=== PATIENT | female | born 1990 | race Caucasian/White ===

== ENCOUNTER 2025-09-27 20:24 | Emergency (ER) | payer BC, SELFPAY ==
--- OUTSIDE RECORDS SUMMARY | 2025-09-21 13:00 | XMS_ITS | Encounter Summary ---
Author Organization [facility] Address [address] [facility] [place] [address] Care Team Providers Care Infrastructure Technician Name Role Phone Yeimi Alexander MD Primary Care Provider [phone] Yeimi Alexander MD Unavailable Reason for Visit * ReasonCommentsUTIAnnual ExamAbdominal PainAbdominal Cramping Encounter Details DateTypeDepartmentCare Team (Latest Contact Info)Robqfuilfwi94/02/2025 1:00 PM ESTOffice Visit [facility] [address] [place] [address] Yeimi Alexander MD [address] [place], [place] [phone] Malignant neoplasm of colon, unspecified part of colon (HCC) (Primary Dx); Right lower quadrant abdominal pain; Acute cystitis with hematuria; Irregular bowel habits Social History Tobacco UseTypesPacks/DayYears UsedDateSmoking Tobacco: Every DayCigarettes Smokeless Tobacco: Never Comments:Vapes daily Alcohol UseStandard Drinks/WeekCommentsYes1 (1 standard drink = 0.6 oz pure alcohol)caffeine intake: 2-3 cups per day; [id number] Health LiteracyAnswer Date RecordedHow often do you need to have someone help you when you read instructions, pamphlets, or other written material from your doctor or pharmacy? Never08/03/2024Social Connection and Isolation PanelAnswerDate RecordedIn a typical week, how many times do you talk on the phone with family, friends, or neighbors?More than three times a week08/03/2024How often do you get together with friends or relatives?More than three times a week08/03/2024How often do you attend restorationism or adventism services?Never08/03/2024o you belong to any clubs or organizations such as restorationism groups, unions, fraternal or athletic groups, or school groups?No08/03/2024How often do you attend meetings of the clubs or organizations you belong to?Never08/03/2024re you , , , , never , or living with a partner?Czowluax05/14/2024UDIT-C AnswerDate RecordedQ1: How often do you have a drink containing alcohol?2-3 times a week08/03/2024Q2: How many drinks containing alcohol do you have on a typical day when you are drinking?1 or Q3: How often do you have six or more drinks on one occasion?Njryrck5508/03/2024Overall Financial Resource Strain (CARDIA)AnswerDate RecordedHow hard is it for you to pay for the very basics like food, housing, medical care, and heating?Not very hard08/03/2024 PHQ-2AnswerDate RecordedPatient Health Questionnaire-2 Dndce92511/25/2022[facility] - Occupational Stress QuestionnaireAnswerDate RecordedDo you feel stress - tense, restless, nervous, or anxious, or unable to sleep at night because yourmind is troubled all the time - these days?Only a bfprts2608/03/2024Exercise Vital SignAnswerDate RecordedOn average, how many days per week do you engage in moderate to strenuous exercise (like a brisk walk)?2 days08/03/2024On average, how many minutes do you engage in exercise at this level?60 min08/03/2024Hunger Vital SignAnswerDate RecordedWithin the past 12 months, you worried that your food would run out before you got the money to buy more.Never true08/03/2024Within the past 12 months, the food you bought just didn't last and you didn't have money to get more.Never true08/03/2024RAPARE - TransportationAnswerDate RecordedIn the past 12 months, has lack of transportation kept you from medical appointments or from getting medications?No 08/03/2024In the past 12 months, has lack of transportation kept you from meetings, work, or from getting things needed for daily living?No08/03/2024 Housing Stability Vital SignAnswerDate RecordedIn the last 12 months, was there a time when you were not able to pay the mortgage or rent on time?No08/03/2024In the past 12 months, how many times have you moved where you were living?0 08/03/2024t any time in the past 12 months, were you homeless or living in a penitentiary (including now)?No08/03/2024CommentsUnknownSex and Gender InformationValueDate RecordedSex Assigned at BirthNot on fileLegal SexFemale 01/02/2023 8:01 PM EDTGender IdentityNot on fileSexual OrientationNot on file OccupationIndustryJob Start DateJob End DateunemployedNot on fileNot on fileNot on filedocumented as of this encounter Last Filed Vital Signs Vital SignReadingTime TakenCommentsBlood Btlektwa335/7409/21/2025 12:59 PM EST Voutx469009/21/2025 12:59 PM ESTTemperature--Respiratory Ishm706311/22/2024 12:59 PM ESTOxygen Saturation--Inhaled Oxygen Concentration--Mxhftq91.2 kg (174 lb 9.6 oz)09/21/2025 12:59 PM CZJYydnhg888.5 cm (5' 2 )09/21/2025 12:59 PM ESTBody Mass Index31.9309/21/2025 12:59 PM ESTdocumented in this encounter Progress Notes * Yeimi Alexander MD - 09/21/2025 1:00 PM ESTAssociated Problem(s): Malignant neoplasm of colon (HCC) s/p colectomy last colonoscopy 10/2023 pt report scopes every 3 years? * Yeimi Alexander MD - 09/21/2025 1:00 PM ESTAssociated Problem(s): Urinary tract infectious disease Orders: sulfamethoxazole-trimethoprim (Bactrim DS) 800-160 MG per tablet; Take 1 tablet by mouth in the morning and 1 tablet before bedtime. Do all this for 7 days. * Yeimi Alexander MD - 09/21/2025 1:00 PM EST Images from the original note were not included. Subjective ?Quick Links Last Note in Specialty Snapshot Edit RFV/CC Edit Screenings Current Meds Patient ID: Oanh Wynn is a 35 y.o. female who presents for UTI, Annual Exam, Abdominal Pain, and Abdominal Cramping. HPI History of Present Illness The patient presents for evaluation of a urinary tract infection. She has been experiencing sleep disturbances over the past few days, which she suspects may be related to her current health issues. Accompanying these sleep issues are nausea and a sensation of urgency. She typically seeks medical attention before these symptoms escalate. She reports that Bactrim has been effective in managing her symptoms in the past. She describes an incident at work where shefelt well initially but experienced pain after her first break, which intensified to the point of causing discomfort during walking and standing. Despite maintaining good hygiene, she reports recurrent infections, approximately one every other month. Her last infection occurred in 07/2025. She declined a referral to a urologist. She managed the pain with Tylenol and the application of a heating pad. She reports feeling well overall and has not had any recent consultations with her vacuum repairer. She has been experiencing bowel irregularities recently, including a sensation of incomplete evacuation. She describes an unusual sensation in the area of her stoma, likening it to the feeling of gas passing through or even a baby kicking. She finds relief from this discomfort by massaging the area and applying a heating pad. Sleep: Reports sleep disturbances over the past few days PAST SURGICAL HISTORY: - Colonoscopy in 10/2023 ?Quick Review Review Full History Edit History Meds - Current Medications[1] --- PMH - Anxiety Cluster headache Colon cancer (HCC) Depression Endometriosis Gestational diabetes ([facility]HS-HCC) Headache Hx of being hospitalized Migraine Personal history of other medical treatment PTSD (post-traumatic stress disorder) TMJ dysfunction Two vessel umbilical cord ([facility]) Urinary retention Objective ?Quick Links Add Vitals Timeline (Adult) Labs Imaging Results Review Trend Vitals ?? Avoid pulling in long tables of results. Comment on relevant results to support your medical decision making. BP 114/74 (BP Location: Left arm, Patient Position: Sitting, BP Cuff Size: Adult) Pulse 88 Resp18 Ht 5' 2 Wt 174 lb 9.6 oz BMI 31.93 kg/m?? Physical Exam Physical Exam Gastrointestinal: Palpable scar tissue noted near the stoma site. ?Quick Links Full Problem List GI Headache Assessment & Plan Right lower quadrant abdominal pain Orders: POCT Urinalysis dipstick Urine culture (clean catch); Future Urinalysis with reflex microscopic (clean catch); Future POCT , urine Malignant neoplasm of colon, unspecified part of colon ([facility]) s/p colectomy last colonoscopy 10/2023 pt report scopes every 3 years? Acute cystitis with hematuria Orders: sulfamethoxazole-trimethoprim (Bactrim DS) 800-160 MG per tablet; Take 1 tablet by mouth in the morning and 1 tablet before bedtime. Do all this for 7 days. Irregular bowel habits Advised to schedule w [facility] / dr callaway Assessment & Plan 1. Urinary tract infection: - Urine study confirms the presence of a urinary tract infection. She reports frequent infections, with the last one occurring in 07/2025. - Reports nausea and pain associated with the infection, which worsened throughout the day. - Advised to maintain adequate hydration and monitor symptoms. If symptoms persist, further evaluation will be necessary. - Prescription for Bactrim will be provided. 2. Bowel irregularities: - Reports issues with bowel movements and sensations near her stoma site, including pain and gas movement. - Advised to schedule an appointment with her vacuum repairer for further assessment. [1] acetaminophen (Tylenol) 325 MG tablet albuterol HFA 90 mcg/act inhaler cetirizine (ZyrTEC ALLERGY) 10 MG tablet cholecalciferol (Vitamin D-3) 50 MCG (1999 UT) capsule citalopram (CeleXA) 20 MG tablet Cranberry 500 MG tablet dicyclomine (Bentyl) 20 MG tablet fluticasone (Flonase) 50 MCG/ACT nasal spray ibuprofen 200 MG tablet Lactobacillus-Inulin (CULTURELLE ADULT ULT BALANCE PO) medroxyPROGESTERone (Depo-Provera) 150 MG/ML suspension prefilled syringe injection syringe Multiple Vitamin (multivitamin) capsule polyethylene glycol, PEG, 3350 (Glycolax) 17 GM/SCOOP powder documented in this encounter Plan of Treatment Not on file documented as of this encounter Procedures Procedure NamePriorityDate/TimeAssociated QjhqipaxzSwaaydejWKDJHrtfojz29/02/2025 1:14 PM EST URINALYSIS QWCOCDFzebjra27/02/2025 1:14 PM EST Right lower quadrant abdominal pain CULTURE, URINE, DCOCHDYBvonwra18/02/2025 1:14 PM EST Right lower quadrant abdominal pain POCT , TBQNELynxlwg47/02/2025 1:12 PM EST Right lower quadrant abdominal pain POCT URINALYSIS UXYUZEINKjthmzh28/02/2025 1:11 PM EST Right lower quadrant abdominal pain documented in this encounter Results * NOTE (09/21/2025 1:14 PM EST)ComponentValueRef RangeTest MethodAnalysis Time Performed AtPathologist SignatureNOTEQUESTComment: This urine was analyzed for the presence of WBC, RBC, bacteria, casts, and other formed elements. Only those elements seen were reported. Specimen (Source)Anatomical Location / LateralityCollection Method / Volume Collection TimeReceived Time09/21/2025 1:14 PM EST09/21/2025 1:15 PM EST Narrative Resulting Agency Comment Performing Organization Information ?Site ID: QPT ?Name: [facility] ?Address: [address] [place] [address], [address] [place] [phone] ?Director: Cody Richmond MD Authorizing ProviderResult TypeResult StatusYeimi Alexander MDQUESTFinal Result Performing OrganizationAddressCity/State/ZIP CodePhone Number [facility] * (ABNORMAL) Urinalysis with reflex microscopic (clean catch) (09/21/2025 1:14 PM EST)ComponentValueRef RangeTest MethodAnalysis TimePerformed AtPathologist SignatureCOLORYELLOWYELLOWQUESTAPPEARANCECLOUDY(A)CLEARQUESTSPECIFIC GRAVITY 1.0081.001 - 1.355NGCTXWG9.55.0 - 8.0QUESTGLUCOSENEGATIVENEGATIVEQUEST BILIRUBINNEGATIVENEGATIVEQUESTKETONESNEGATIVENEGATIVEQUESTOCCULT BLOOD2+(A) NEGATIVEQUESTPROTEINTRACE(A)NEGATIVEQUESTNITRITENEGATIVENEGATIVEQUESTLEUKOCYTE ESTERASE3+(A)NEGATIVEQUESTWBC> OR = 60(A)< OR = 5 /HPFQUESTRBCNONE SEEN< OR = 2 /HPFQUESTSQUAMOUS EPITHELIAL CELLS0-5< OR = 5 /HPFQUESTBACTERIAFEW(A)NONE SEEN /HPFQUESTHYALINE CAST0-5(A)NONE SEEN /LPFQUESTSpecimen (Source)Anatomical Location / LateralityCollection Method / VolumeCollection TimeReceived Time UrineUrine specimen obtained by clean catch procedure / Ftjjyva4309/21/2025 1:14 PM EST09/21/2025 1:15 PM EST Narrative Resulting Agency Comment Performing Organization Information ?Site ID: QPT ?Name: [facility] ?Address: [address] [place] [phone] ?Director: Cody Richmond MD Authorizing ProviderResult TypeResult StatusYeimi Alexander MDLAB URINE ORDERABLES Final ResultPerforming OrganizationAddressCity/State/ZIP CodePhone Number [facility] * Urine culture (clean catch) (09/21/2025 1:14 PM EST)ComponentValueRef Range Test MethodAnalysis TimePerformed AtPathologist SignatureMICRO [id number] QUESTSPECIMEN QUALITYAdequateQUESTSOURCE: (QUEST)URINEQUESTSTATUSFINALQUEST RESULTSEE NOTEQUESTComment: Less than 10,000 CFU/mL of single Gram negative organism isolated. No further testing will be performed. If clinically indicated, recollection using a method to minimize contamination, with prompt transfer to Urine Culture Transport Tube, is recommended. Specimen (Source)Anatomical Location / LateralityCollection Method / Volume Collection TimeReceived TimeUrineUrine specimen obtained by clean catch procedure / Vultgdf7809/21/2025 1:14 PM EST09/21/2025 1:15 PM EST Narrative Resulting Agency Comment Performing Organization Information ?Site ID: QPT ?Name: [facility] ?Address: [address] [place] [address], [address] [place] [id number] ?Director: Cody Richmond MD Authorizing ProviderResult TypeResult Corby Alexander MDLAB MICROBIOLOGY - GENERAL ORDERABLESFinal ResultPerforming OrganizationAddressCity/State/ZIP Code Phone Number [facility] * POCT , urine (09/21/2025 1:12 PM EST)ComponentValueRef RangeTest MethodAnalysis TimePerformed AtPathologist SignaturePreg Test, UrNegative NegativeSpecimen (Source)Anatomical Location / LateralityCollection Method / VolumeCollection TimeReceived LuktYtrze35/02/2025 1:12 PM EST Narrative Authorizing ProviderResult TypeResult Corby Alexander MDPOINT OF CARE TEST ENTER/EDIT ORDERABLESFinal Result * (ABNORMAL) POCT Urinalysis dipstick (09/21/2025 1:11 PM EST)ComponentValueRef RangeTest MethodAnalysis TimePerformed AtPathologist SignatureColor, UAYellow Clarity, UACloudyGlucose, UANegativeNegative - 2000(110) ++++ mg/dLBilirubin, UANegativeNegative - 4(70) +++ mg/dLKetones, UAPositiveNegative - 160(16) ++++ mg/dLSpec Grav, UA1.0151 - 1.03Blood, UAPositiveNegative - 50 Sahil/mcLpH, UA 6.55 - 9Protein, UA1+Negative - 2000(20) ++++ mg/dLUrobilinogen, UA0.20.2 - 12 mg/dLLeukocytes, UA3+Negative - 500+++ Brayan/mcLNitrite, UANegativeNegative - PositiveSpecimen (Source)Anatomical Location / LateralityCollection Method / VolumeCollection TimeReceived MjeiHlakh75/02/2025 1:11 PM EST Narrative Authorizing ProviderResult TypeResult Corby Alexander MDPOINT OF CARE TEST ENTER/EDIT ORDERABLESFinal Result documented in this encounter Visit Diagnoses Diagnosis Malignant neoplasm of colon, unspecified part of colon (HCC)- Primary Right lower quadrant abdominal pain Acute cystitis with hematuria Irregular bowel habits documented in this encounter Care Teams Team MemberRelationshipSpecialtyStart DateEnd Date Yeimi Alexander MD [address] [facility] [place] [address] [facility] - [facility] Yeimi Alexander MD [address] [facility] [address] [place], [place] [id number] PCP - Alan Lara06/21/25documented as of this encounter
--- OUTSIDE RECORDS SUMMARY | 2025-09-27 19:00 | XMS_ITS | Encounter Summary ---
Author Organization [facility] Address [address] [place] [address] Care Team Providers Care Quality Analyst Name Role Phone Yeimi Alexander MD Primary Care Provider [phone] Yeimi Alexander MD Unavailable Reason for Referral * Imaging (Routine) - Pending ReviewSpecialtyDiagnoses / ProceduresReferred By ContactReferred To ContactRadiology Diagnoses Fever, unspecified fever cause Hx of pyelonephritis Acute bilateral low back pain without sciatica Procedures CT abdomen pelvis w and wo IV contrast Silvia Silva NP [address] [place] [address] Phone: tel: fax: Referral IDStatusReasonStart DateExpiration DateVisits RequestedVisits [id number] [id number]/ Reason for Visit * ReasonCommentsFeverBack Pain Encounter Details DateTypeDepartmentCare Team (Latest Contact Info)Hyumgmecbid92/08/2025 7:00 PM ESTOffice Visit [facility] [address] [place] [phone] Silvia Silva NP [address] [place], [place] [phone] Hx of pyelonephritis (Primary Dx); Fever, unspecified fever cause; Acute midline low back pain without sciatica; Acute bilateral low back pain without sciatica Social History Tobacco UseTypesPacks/DayYears UsedDateSmoking Tobacco: Every DayCigarettes Smokeless Tobacco: Never Comments:Vapes daily Alcohol UseStandard Drinks/WeekCommentsYes1 (1 standard drink = 0.6 oz pure alcohol)caffeine intake: 2-3 cups per day; [id number] Health LiteracyAnswer Date RecordedHow often do you [...] times a week08/03/2024How often do you attend mu-ism or tenriism services?Never08/03/2024o you belong to any clubs or organizations such as mu-ism groups, unions, fraternal or athletic groups, or school groups?No08/03/2024How often do you attend meetings of the clubs or organizations you belong to?Never08/03/2024re you , , , , never , or living with a partner?Kwbtyiyo96/14/2024UDIT-C AnswerDate RecordedQ1: How often do you have a drink containing alcohol?2-3 times a week08/03/2024Q2: How many drinks containing alcohol do you have on a typical day when you are drinking?1 or Q3: How often do you have six or more drinks on one occasion?Kdjzpbk2908/03/2024Overall Financial Resource Strain (CARDIA)AnswerDate RecordedHow hard is it for you to pay for the very basics like food, housing, medical care, and heating?Not very hard08/03/2024 PHQ-2AnswerDate RecordedPatient Health Questionnaire-2 [facility]tcef107[facility] [place] [facility] - Occupational Stress QuestionnaireAnswerDate RecordedDo you feel stress - tense, restless, nervous, or anxious, or unable to sleep at night because yourmind is troubled all the time - these days?Only a pqivsl6508/03/2024Exercise Vital SignAnswerDate RecordedOn average, how many days [...] were you homeless or living in a fci (including now)?No08/03/2024CommentsUnknownSex and Gender InformationValueDate RecordedSex Assigned at BirthNot on fileLegal SexFemale 01/02/2023 8:01 PM EDTGender IdentityNot on fileSexual OrientationNot on file OccupationIndustryJob Start DateJob End DateunemployedNot on fileNot on fileNot on filedocumented as of this encounter Last Filed Vital Signs Vital SignReadingTime TakenCommentsBlood Ayimvtpf238/7209/27/2025 6:01 PM EST Oryky544409/27/2025 6:01 PM QLDMsghzsrucet78.7 ??C (99.9 ??F)09/27/2025 6:01 PM ESTRespiratory Pnzh0803/05/2025 6:01 PM ESTOxygen Saturation--Inhaled Oxygen Concentration--Knfsme70.2 kg (174 lb 9.6 oz)09/27/2025 6:01 PM JFCIorzcg912.5 cm (5' 2 )09/27/2025 6:01 PM ESTBody Mass Index31.9309/27/2025 6:01 PM EST documented in this encounter Progress Notes * Silvia Silva NP - 09/27/2025 7:00 PM ESTAssociated Problem(s): Fever Orders: POCT Urinalysis dipstick STATUS COVID-19/FLU CBC and differential; Future Comprehensive metabolic panel; Future Mononucleosis screen; Future ciprofloxacin (Cipro) 500 MG tablet; Take 1 tablet (500 mg) by mouth in the morning and 1 tablet (500 mg) before bedtime. Do all this for [address] abdomen pelvis w and wo IV contrast; Future Sedimentation rate, automated; Future * Silvia Silva NP - 09/27/2025 7:00 PM EST Images from the original note were not included. Subjective ?Quick Links Last Note in Specialty Snapshot Edit RFV/CC Edit Screenings Current Meds Patient ID: Oanh Wynn is a 35 y.o. female who presents for Fever and Back Pain. HPI History of Present Illness The patient presents for evaluation of neck pain, and back pain. She reports experiencing recently having symptoms consistent with a UTI, including dysuria, which has since resolved. She started having a fever yesterday and she has been managing her symptoms with Tylenol and Motrin, administered every 4 hours. She is currently on Bactrim for her UTI. This morning, she developed neck stiffness and lower back pain, reminiscent of a previous kidney infection. She also reports intermittent fever, chills, and fatigue. She is unable to flex her neck due to pain. She has no other symptoms apart from the aforementioned back and neck pain and fever. ALLERGIES The patient has no known allergies. 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 Avoid pulling in long tables of results. Comment on relevant results to support your medical decision making. BP 116/72 (BP Location: Left arm, Patient Position: Sitting, BP Cuff Size: Adult) Pulse 86 Temp99.9 ??F (Tympanic) Resp 18 Ht 5' 2 Wt 174 lb 9.6 oz BMI 31.93 kg/m?? Physical Exam Vitals reviewed. Constitutional: General: She is not in acute distress. Appearance: Normal appearance. She is ill-appearing. HENT: Head: Normocephalic and atraumatic. Right Ear: Tympanic membrane normal. Left Ear: Tympanic membrane normal. Nose: Nose normal. Eyes: General: No visual field deficit. Neck: Meningeal: Brudzinski's sign absent. Comments: Neck isn't rigid, is painful with movement. Cardiovascular: Rate and Rhythm: Normal rate and regular rhythm. Pulses: Normal pulses. Heart sounds: Normal heart sounds. Pulmonary: Effort: Pulmonary effort is normal. Breath sounds: Normal breath sounds. No wheezing, rhonchi or rales. Abdominal: General: Abdomen is flat. Palpations: Abdomen is soft. Tenderness: There is right CVA tenderness and left CVA tenderness. Musculoskeletal: General: Normal range of motion. Cervical back: Normal range of motion. Pain with movement and muscular tenderness present. Lymphadenopathy: Head: Right side of head: Submandibular adenopathy present. Left side of head: Submandibular adenopathy present. Cervical: Cervical adenopathy present. Skin: General: Skin is warm. Neurological: General: No focal deficit present. Mental Status: She is alert and oriented to person, place, and time. Sensory: Sensation is intact. No sensory deficit. Motor: Motor function is intact. Coordination: Coordination is intact. Gait: Gait is intact. Psychiatric: Mood and Affect: Mood normal. Behavior: Behavior normal. Physical Exam Vital Signs: Temperature is 99.9??F. HEENT: Neck is stiff with pain on movement. No sore throat. Solidly enlarged lymph nodes noted. Respiratory: Lungs clear to auscultation. ?Quick Links Full Problem List GI Headache Assessment & Plan Fever, unspecified fever cause Orders: POCT Urinalysis dipstick STATUS COVID-19/FLU CBC and differential; Future Comprehensive metabolic panel; Future Mononucleosis screen; Future ciprofloxacin (Cipro) 500 MG tablet; Take 1 tablet (500 mg) by mouth in the morning and 1 tablet (500 mg) before bedtime. Do all this for [address] abdomen pelvis w and wo IV contrast; Future Sedimentation rate, automated; Future Acute midline low back pain without sciatica Orders: POCT Urinalysis dipstick Assessment & Plan 1. Urinary tract infection (UTI). Her urine sample did not reveal significant abnormalities, except for the presence of white blood cells, which could be indicative of various conditions. Her culture did not grow any bacteria from 09/21/25. A prescription for Cipro will be provided as an alternative to Bactrim to cover a kidney infection. 2. Back pain She reports bilateral lower back pain, and demonstrated bilateral CVA tenderness on palpation. She has a history of pyelonephritis. The CT scan of the abdomen and pelvis will help determine if there is any underlying infection causing her symptoms. 3. Fever She has a low grade temp of 99.9 today and reports that she has been having body aches and chills. Her flu and covid tests are negative. A CBC, CMP, Sed rate, and a screening for mononucleosis will also be ordered. 3. Neck pain. She reports neck pain and stiffness, and reports pain with bending her head to her chest. The Brudzinski's sign was negative. She was concerned for the possibility of meningitis and this was discussed, given her symptoms of neck pain and fever. Blood work, including a CBC and CMP, will be conducted. If her condition deteriorates, particularly if she experiences worsening neck pain, fever, headache, changes in mentation, dizziness, photophobia, lightheadedness, vomiting, confusion, or the development of rashes, she should seek immediate medical attention at the emergency room- she is agreeable. She will follow-up in 1 week or earlier if needed. [1] acetaminophen (Tylenol) 325 MG tablet albuterol [...] glycol, PEG, 3350 (Glycolax) 17 GM/SCOOP powder sulfamethoxazole-trimethoprim (Bactrim DS) 800-160 MG per tablet documented in this encounter Plan of Treatment NameTypePriorityAssociated DiagnosesOrder ScheduleCBC and differentialLabRoutine Fever, unspecified fever cause Acute bilateral low back pain without sciatica Expected: 09/27/2025 (Approximate), Expires: 09/27/2026omprehensive metabolic panelLabRoutine Fever, unspecified fever cause Acute bilateral low back pain without sciatica Expected: 09/27/2025 (Approximate), Expires: 09/27/2026Mononucleosis screenLab Routine Fever, unspecified fever cause Expected: 09/27/2025 (Approximate), Expires: 09/27/2026T abdomen pelvis w and wo IV contrastImagingRoutine Fever, unspecified fever cause Hx of pyelonephritis Acute bilateral low back pain without sciatica Expected: 09/27/2025, Expires: 09/27/2026Sedimentation rate, automatedLabRoutine Fever, unspecified fever cause Acute bilateral low back pain without sciatica Expected: 09/27/2025 (Approximate), Expires: 09/27/2026documented as of this encounter Procedures Procedure NamePriorityDate/TimeAssociated DiagnosisCommentsPOCT , URINE Kvrggon7509/27/2025 6:36 PM EST Acute bilateral low back pain without sciatica STATUS COVID-19/FYJMfxnvjy03/08/2025 6:16 PM EST Fever, unspecified fever cause POCT URINALYSIS ZUHTKCQTDaehinl75/08/2025 6:16 PM EST Fever, unspecified fever cause Acute midline low back pain without sciatica documented in this encounter Results * POCT , urine (09/27/2025 6:36 PM EST)ComponentValueRef RangeTest MethodAnalysis TimePerformed AtPathologist SignaturePreg Test, UrNegative NegativeSpecimen (Source)Anatomical Location / LateralityCollection Method / VolumeCollection TimeReceived RmxfKlvbf76/08/2025 6:36 PM EST Narrative Authorizing ProviderResult TypeResult StatusAshThe [facility] NPPOINT OF CARE TEST ENTER/EDIT ORDERABLESFinal Result * STATUS COVID-19/FLU (09/27/2025 6:16 PM EST)ComponentValueRef RangeTest Method Analysis TimePerformed AtPathologist SignatureFLU ANegativeFLU BNegativeSARS COV 2 RNANegativeSpecimen (Source)Anatomical Location / LateralityCollection Method / VolumeCollection TimeReceived MgnxMtugtookdspcql45/08/2025 6:16 PM EST Narrative Authorizing ProviderResult TypeResult StatusAshSouthwest General Health Centert NPPOINT OF CARE TEST ENTER/EDIT ORDERABLESFinal Result * POCT Urinalysis dipstick (09/27/2025 6:16 PM EST)ComponentValueRef RangeTest MethodAnalysis TimePerformed AtPathologist SignatureColor, UAYellowClarity, UA ClearGlucose, UANegativeNegative - 2000(110) ++++ mg/dLBilirubin, UANegative Negative - 4(70) +++ mg/dLKetones, UANegativeNegative - 160(16) ++++ mg/dLSpec Grav, UA1.0101 - 1.03Blood, UANegativeNegative - 50 Sahil/mcLpH, UA6.05 - 9 Protein, UANegativeNegative - 2000(20) ++++ mg/dLUrobilinogen, UA0.20.2 - 12 mg/dLLeukocytes, UATraceNegative - 500+++ Brayan/mcLNitrite, UANegativeNegative - PositiveSpecimen (Source)Anatomical Location / LateralityCollection Method / VolumeCollection TimeReceived RhosNtezc73/08/2025 6:16 PM EST Narrative Authorizing ProviderResult TypeResult StatusFormerly [facility] NPPOINT OF CARE TEST ENTER/EDIT ORDERABLESFinal Result documented in this encounter Visit Diagnoses Diagnosis Hx of pyelonephritis- Primary Fever, unspecified fever cause Acute midline low back pain without sciatica Acute bilateral low back pain without sciatica documented in this encounter Care Teams Team MemberRelationshipSpecialtyStart DateEnd Date Yeimi Alexander MD [address] [place], [place] [id number] [facility] Yeimi Alexander MD [address] [facility] [place] [address] PCP - Alan Lara06/21/25documented as of this encounter
[2025-09-27 20:29] VITALS: BP 132/85; PULSE 124; TEMP 37.8; O2SAT 100; BMI 30.5
--- NOTE | 2025-09-27 20:43 | ED.GENADUL1 ---
HPI HPI - General Adult General Chief complaint: Fever Stated complaint: Stiff neck, fever, chills, pain Time Seen by Provider: 09/27/25 20:33 Source: patient Mode of arrival: walk-in Limitations: no limitations History of Present Illness HPI narrative: presents complaining of possible meningitis. ill for one day with neck and lower back pain. Neck stiffness. Fever and chills. She has been taking tylenol. Nausea without vomiting. Developed rash left thigh tonight. neg sore throat. Related Data Home Medications ?Medication ?Instructions ?Recorded ?Confirmed citalopram 20 mg tablet mg 09/27/25 Allergies Allergy/AdvReac Type Severity Reaction Status Date / Time No Known Drug Allergies Allergy Verified 09/27/25 20:28 Opioid HPI Opioid Management Most Recent Opioid Data: Last Pain Scale 6 Today, 20:29 Last MAR Pain Assessment Today, 21:54 Review of Systems ROS Status of ROS 10 or more systems reviewed and unremarkable except as noted in history and below Exam Constitutional Vital Signs, click to edit/add: Last Vital Signs Temp 99.6 F 09/27/25 23:19 Pulse 103 H 09/27/25 23:19 Resp 16 09/27/25 20:29 BP 112/65 09/27/25 23:19 Pulse Ox 95 09/27/25 23:19 O2 Del Method Room Air 09/27/25 20:29 Common normals: no apparent distress, average body habitus, oriented x3, no limitations, healthy appearing, alert and well nourished [facility] Common normals: normocephalic and head/scalp atraumatic Eye Common normals: PERRL and EOMs intact bilaterally Respiratory Common normals: normal respiratory effort, no retractions, no use of accessory muscles and clear to auscultation bilaterally Cardio Rate: tachycardic GI Common normals: Normal to inspection, nondistended, normoactive bowel sounds present, soft to palpation and non-tender Extremity Common normals: normal to inspection and full ROM Neuro Common normals: oriented x3, CN's II-XII intact bilaterally and moves all extremities Psych Appearance: grossly normal Course Vital Signs Vital signs: Vital Signs Temperature 100.0 F 09/27/25 20:29 Pulse Rate 124 H 09/27/25 20:29 Respiratory Rate 16 09/27/25 20:29 Blood Pressure 132/85 09/27/25 20:29 Pulse Oximetry 100 09/27/25 20:29 Oxygen Delivery Method Room Air 09/27/25 20:29 Temperature 99.6 F 09/27/25 23:19 Pulse Rate 103 H 09/27/25 23:19 Respiratory Rate 16 09/27/25 20:29 Blood Pressure 112/65 09/27/25 23:19 Pulse Oximetry 95 09/27/25 23:19 Oxygen Delivery Method Room Air 09/27/25 20:29 Medical Decision Making MDM Narrative Medical decision making narrative: patient presents with history concerning for meningitis. neck pain, headache and fever. Exam unremarkable except for tenderness of her C-T spine. no focal tenderness spinal tap with minor trauma as evidence by 298 RBCs. No WBC. cx sent. Patient states she had COVID 19 and influenza performed earlier today before coming to the ED. WBC is normal. UA clear. cxray per my impression is without acute findings. patient and her male partner informed of the findings and she is discharged home and instructed to lay flat on her back for at least 4 hours and to follow up with her doctor or return to the ER n 1-2 days for recheck Lab Data Labs: Lab Results 09/27/25 09/27/25 09/27/25 Range/Units 21:00 22:12 23:30 WBC 4.8 (4.0-11.0) 10^3/uL RBC 4.24 (4.20-5.40) 10^6/uL Hgb 14.1 (12.0-16.0) g/dL Hct 40.6 (36.0-48.0) % MCV 95.8 (81.0-99.0) fL MCH 33.3 (26.7-34.0) pg MCHC 34.7 (29.9-35.2) g/dL RDW 12.3 (11.0-15.0) % Plt Count 255 (150-450) 10^3/uL MPV 8.7 L (9.5-13.5) fL Seg Neuts % (Manual) 86.0 H (43.0-75.0) Lymphocytes % (Manual) 5.0 L (20.5-60.0) % Atypical Lymphs % (Man) 6.0 % Monocytes % (Manual) 3.0 (1.7-12.0) % Eosinophils % (Manual) 0.0 L (0.9-7.0) % Basophils % (Manual) 0.0 L (0.2-2.0) % Neutrophils # (Manual) 4.12 (1.4-6.5) 10^3/uL Lymphocytes # (Manual) 0.24 L (1.20-3.80) 10^3/uL Abs Atypical Lymphs Man 0.28 Monocytes # (Manual) 0.14 L (0.30-0.80) 10^3/uL Eosinophils # (Manual) 0.00 (0.00-0.70) 10^3/uL Basophils # (Manual) 0.00 (0.00-0.10) 10^3/uL Sodium 136 (136-145) mmol/L Potassium 3.7 (3.5-5.1) mmol/L Chloride 103 (98-107) mmol/L Carbon Dioxide 28.4 (21.0-32.0) mmol/L Anion Gap 8.3 BUN 8.0 (7.0-18.0) mg/dL Creatinine 0.95 (0.55-1.02) mg/dL Est GFR ( Amer) >60 (>=60 mL/min/1.73m^2) Est GFR (Non-Af Amer) >60 (>=60 mL/min/1.73m^2) BUN/Creatinine Ratio 8.4 Glucose 108 H (74-106) mg/dL Lactate 1.6 (0.4-2.0) mmol/L Calcium 8.7 (8.5-10.1) mg/dL Total Bilirubin 0.4 (0.2-1.0) mg/dL AST 13 L (15-37) U/L ALT 21 (14-59) U/L Alkaline Phosphatase 60 (46-116) U/L Total Protein 7.0 (6.4-8.2) g/dL Albumin 3.5 (3.4-5.0) g/dL Globulin 3.5 g/dL Albumin/Globulin Ratio 1.0 Urine Color Yellow (YELLOW) Urine Clarity Clear (CLEAR) Urine pH 6.5 (5.0-9.0) Ur Specific [place] 1.015 (1.005-1.025) Urine Protein Negative (NEG/TRACE) mg/dL Urine Glucose (UA) Negative (NEGATIVE) mg/dL Urine Ketones Negative (NEGATIVE) mg/dL Urine Occult Blood Trace-i (NEGATIVE) Urine Nitrite Negative (NEGATIVE) Urine Bilirubin Negative (NEGATIVE) Urine Urobilinogen 0.2 (0.2-1.0) EU/dL Ur Leukocyte Esterase Negative (NEGATIVE) Urine RBC 0-2 (0-2) #/HPF Urine WBC 2-5 A (NONE SEEN) #/HPF Ur Squamous Epith Cells Few A (NONE/RARE) #/LPF Urine Crystals None seen (None Seen) #/HPF Urine Bacteria Trace A (NONE SEEN) #/HPF Urine Casts None seen (NONE SEEN) #/LPF Urine Mucus None seen (NONE SEEN) Ur Culture Indicated? No Fluid Color Colorless Fluid Clarity Clear Fluid WBC 0 (0-5) cubic mm Fluid RBC 298 H (0-0) cubic mm Fluid Monocytes Not Reportable CSF Glucose 75 H (40-70) mg/dL CSF Total Protein 48 H (15-45) mg/dL Discharge Plan Discharge Chief Complaint: Fever Clinical Impression: Viral infection Patient Disposition: Home, Self-Care Prescriptions / Home Meds: No Action citalopram 20 mg tablet Print Language: Hebrew Instructions: Viral Syndrome (ED) Additional Instructions: plenty of fluids. continue tylenol or ibuprofen for fever. follow up with your doctor in 1 day for recheck or return to ER for recheck Referrals: MAO SAWYER [Primary Care Provider, Family Practice] - 1 week Procedures ED Procedure Instructions Procedures Procedures: LP: patient with fever and neck pain procedure performed with patient in the sitting position. L3-4 site of entry. Patient did become anxious and nauseated and the procedure was placed on hold. She was treated with zofran and ativan and felt better. Procedure then performed. Did strike bone on first attempt and needle was reposition and then there was success. Initial CSF was blood tinged but clear with subseqent collections. Tolerated well. Spinal needle from kit used for the procedure.
[2025-09-27 21:12] LABS: Hematocrit 40.6 % (36.0-48.0); Hemoglobin 14.1 g/dL (12.0-16.0); Mean Corpuscular HGB Conc 34.7 g/dL (29.9-35.2); Mean Corpuscular Hemoglobin 33.3 pg (26.7-34.0); Mean Corpuscular Volume 95.8 fL (81.0-99.0); Platelet Count 255 10^3/uL (150-450); Red Blood Count 4.24 10^6/uL (4.20-5.40); White Blood Count 4.8 10^3/uL (4.0-11.0)
[2025-09-27 21:34] LABS: Alanine Aminotransferase 21 U/L (14-59); Albumin Globulin Ratio 1.0; Albumin Level 3.5 g/dL (3.4-5.0); Alkaline Phosphatase 60 U/L (46-116); Anion Gap 8.3; Aspartate Amino Transferase 13 U/L (15-37); Blood Urea Nitrogen 8.0 mg/dL (7.0-18.0); Calcium 8.7 mg/dL (8.5-10.1); Carbon Dioxide 28.4 mmol/L (21.0-32.0); Chloride 103 mmol/L (98-107); Estimated GFR (African America >60 (>=60 mL/min/1.73m^2); Estimated GFR (Non-African Ame >60 (>=60 mL/min/1.73m^2); Globulin 3.5 g/dL; Glucose 108 mg/dL (74-106); Potassium 3.7 mmol/L (3.5-5.1); Sodium 136 mmol/L (136-145); Total Protein 7.0 g/dL (6.4-8.2)
[2025-09-27 21:37] LABS: Lactate/Lactic Acid 1.6 mmol/L (0.4-2.0)
[2025-09-27] MEDS: LORAZEPAM 2 MG/ML VIAL 1 MG IV (21:40)
[2025-09-27] MEDS: 0.9 % SODIUM CHLORIDE 1,000 ML 999 ML IV ×2 (21:40→22:26)
--- OUTSIDE RECORDS SUMMARY | 2025-09-27 21:46 | XMS_ITS | Encounter Summary ---
Author Organization [facility] Address [address] [place] [address] Care Team Providers Care Conventions Reservationist Name Role Phone Yeimi Alexander MD Primary Care Provider [phone] Yeiim Alexander MD Unavailable Encounter Details DateTypeDepartmentCare Team (Latest Contact Info)Nolafcbrevy49/08/2025Travel Social History Tobacco UseTypesPacks/DayYears UsedDateSmoking Tobacco: Every DayCigarettes Smokeless Tobacco: Never Comments:Vapes daily Alcohol UseStandard Drinks/WeekCommentsYes1 (1 standard drink = 0.6 oz pure alcohol)caffeine intake: 2-3 cups per day; [id number] Health LiteracyAnswer Date RecordedHow often do you [...] times a week08/03/2024How often do you attend anglican or yazdanism services?Never08/03/2024o you belong to any clubs or organizations such as anglican groups, unions, fraternal or athletic groups, or school groups?No08/03/2024How often do you attend meetings of the clubs or organizations you belong to?Never08/03/2024re you , , , , never , or living with a partner?Otdtinsu68/14/2024UDIT-C AnswerDate RecordedQ1: How often do you have a drink containing alcohol?2-3 times a week08/03/2024Q2: How many drinks containing alcohol do you have on a typical day when you are drinking?1 or Q3: How often do you have six or more drinks on one occasion?Jcibhxg9208/03/2024Overall Financial Resource Strain (CARDIA)AnswerDate RecordedHow hard is it for you to pay for the very basics like food, housing, medical care, and heating?Not very hard08/03/2024 PHQ-2AnswerDate RecordedPatient Health Questionnaire-2 Glekz26811/25/2022[facility] [place] of Occupational Health - Occupational Stress QuestionnaireAnswerDate RecordedDo you feel stress - tense, restless, nervous, or anxious, or unable to sleep at night because yourmind is troubled all the time - these days?Only a tmnghe3308/03/2024Exercise Vital SignAnswerDate RecordedOn average, how many days [...] fileNot on filedocumented as of this encounter Plan of Treatment Not on file documented as of this encounter Visit Diagnoses Not on filedocumented in this encounter Care Teams Team MemberRelationshipSpecialtyStart DateEnd Date Yeimi Alexander MD [address] [place] [address] [facility] Yeimi Alexander MD [address] [facility] [place] [address] PCP - Alan Lara06/21/25documented as of this encounter
--- OUTSIDE RECORDS SUMMARY | 2025-09-27 21:46 | XMS_ITS | Clinical Summary ---
Author Organization [facility] Address [address] [place] [id number] Care Team Providers Care Line Analyst Name Role Phone Yeimi Alexander MD Primary Care Provider [phone] Allergies Active AllergyReactionsCriticalityNoted DateCommentsBee PollenOther: See Vzdyjumt25/14/2016 Seasonal allergies. Medications MedicationSigDispense QuantityRefillsLast FilledStart DateEnd DateStatus cetirizine (ZYRTEC) 10 mg tablet Take 10 mg by mouth at bedtime as needed. Active ALBUTEROL INHALATION Inhale 1 Puff as instructed as needed.Active Clindamycin Phosphate (CLEOCIN T) 1 % lotion Apply 1 application to affected area as needed.Active acetaminophen (TYLENOL) 500 mg tablet Take 2 tablets by mouth every 6 hours. 100 tablet 01/25/2021ctive calcium carbonate (TUMS) 500 mg chew Take 1.5 tablets by mouth three times daily.01/25/2021ctive citalopram (CELEXA) 20 mg tablet Take 20 mg by mouth once daily.12/29/2020ctive lactobacillus rhamnosus (CULTURELLE) 10 billion cell capsule Take 1 capsule by mouth once daily. 30 capsule 04/06/2021ctive ibuprofen (MOTRIN) 800 mg tablet Take 1 tablet by mouth every 8 hours. 20 tablet 04/07/2021ctive simethicone, chewable (MYLICON) 80 mg chewable tablet Take 1 tablet by mouth every 6 hours as needed.04/06/2021ctive Active Problems ProblemNoted DateDiagnosed DateSBO (small bowel obstruction)04/21/2021Nicotine use disorder, F17.Obesity, Class I, BMI 30-34.90/ectal bzjebg7501/05/2021 Assessment & Plan (03/27/2021 8:22 AM EDT): Assessment: SEE HPI Assessment & Plan (01/17/2021 1:27 PM EDT): Assessment: Scheduled for surgery. Anxiety and depression Assessment & Plan (03/27/2021 8:22 AM EDT): Assessment: stable on medication Assessment & Plan (01/17/2021 1:28 PM EDT): Assessment: History of panic attacks. Taking Rx; anxiety higher right now with surgery coming up. Resolved Problems ProblemNoted DateDiagnosed DateResolved DateAttention to commxepdy50/15/2021 04/06/2021 Family History Medical HistoryRelationCommentsHypertensionFatherProstate CancerMaternal GrandfatherBreast CancerMaternal GrandmotherAsthmaMotherDiabetesMother HyperlipidemiaMotherHypertensionMotherNeuropathyMotherColon CancerPaternal GrandfatherDied of metastatic diseaseRelationStatusCommentsFatherAliveMaternal GrandfatherMaternal GrandmotherMotherAlivePaternal Grandfather Social History Tobacco UseTypesPacks/DayYears UsedDateSmoking Tobacco: Every DayCigarettes Smokeless Tobacco: Never Tobacco Cessation:Ready to Q uit: No; Counseling Given: Yes Comments:Quit in 2019, started again 03/10 Alcohol UseStandard Drinks/WeekCommentsYes0 (1 standard drink = 0.6 oz pure alcohol)1-2 times weekly; 3-4 drinks.Area Deprivation IndexAnswerDate Recorded National Score (1-100), lower number is lower riskNot on file01/05/2021tate Score (1-10), lower number is lower riskNot on file01/05/2021ata from: https://www.neighborhoodatlas.medicine.[facility].edu/. Last address used for calculationNot on file01/05/2021CommentsNoSex and Gender Information ValueDate RecordedSex Assigned at ZzeuaNdfomh23/22/2021 11:28 AM EDTLegal Sex Uflqxq9501/03/2021 2:33 PM EDTGender LbnikvocDupxbw16/22/2021 11:28 AM EDTSexual CijrtmhghpzDtpesdmr28/22/2021 11:28 AM EDT Last Filed Vital Signs Vital SignReadingTime TakenCommentsBlood Quagbofu989/6007 2:03 PM EDT Ethdc4776 2:03 PM FDYRqijntjeerg27.2 ??C (97.2 ??F)04/27/2021 2:03 PM EDTRespiratory Zkbp409904/22/2021 11:47 AM EDTOxygen Dwidkbngsg073%04/22/2021 11:47 AM EDTInhaled Oxygen Concentration--Xrmlvw40.9 kg (154 lb)04/27/2021 2:03 PM EBQPvvmqx252.5 cm (5' 2 )04/27/2021 2:03 PM EDTBody Mass Index28.1707 2:03 PM EDT Plan of Treatment Health MaintenanceDue DateLast DoneCommentsAnxiety Danvvirtf47/04/2008Depression Xepkwpfyz36/04/2008HIV Wlofymjce06/04/2008Hepatitis C Smhamoupx37/04/2008 DTaP,Tdap,Td Vaccine (1 - Tdap)2009Hepatitis B Vaccine (1 of 3 - 19+ 3- dose series)2009Cervical Cancer Rxcoxhmza81/04/2011HPV Vaccine (1 - 3-dose SCDM series)2017Covid-19 Vaccine ( - 2024- season)2025Influenza Vaccine (#1)2025 Insurance * Guarantor: Joce Wynn AAccount TypeRelation to PatientDate of BirthPhone Billing AddressPersonal/EznsguQyuj[address] [facility] [place] [address] Care Teams Team MemberRelationshipSpecialtyStart DateEnd Date Yeimi Alexander MD [address] [place], [place] [id number] [facility]
--- OUTSIDE RECORDS SUMMARY | 2025-09-27 21:46 | XMS_ITS | Clinical Summary ---
Author Organization [facility] Address [id number] [place] [address] Care Team Providers Care Box Shook Patcher Name Role Phone Yeimi Alexander MD Primary Care Provider [phone] Allergies Active AllergyReactionsCriticalityNoted ZjhjIuzhuqapDmgrcftlbHlkxhly80/28/2022 Medications * This document contains information received from the source organization and may not represent a complete record from that organization. MedicationSigDispense QuantityRefillsLast FilledStart DateEnd DateStatus fluticasone (FLONASE) 50 mcg/actuation nasal spray Administer 2 sprays into each nostril daily.Active cetirizine (ZyrTEC) 10 mg tablet Take 10 mg by mouth daily.Active citalopram (CeleXA) 10 mg tablet Take 1 tablet (10 mg total) by mouth daily. 90 tablet Active ibuprofen (MOTRIN) 600 mg tablet Take 1 tablet (600 mg total) by mouth every 6 (six) hours as needed for pain or fever. 30 tablet 10/17/2022ctive acetaminophen (TYLENOL EXTRA STRENGTH) 500 mg tablet Take 2 tablets (1,000 mg total) by mouth every 6 (six) hours as needed for pain or fever. 30 tablet 10/17/2022ctive ondansetron ODT (ZOFRAN ODT) 4 mg disintegrating tablet Dissolve 1 tablet (4 mg total) on tongue every 8 (eight) hours as needed for nausea for up to 10 doses. 10 tablet 10/17/2022ctive Active Problems ProblemNoted DateDiagnosed DateSevere alcohol use wicnvqxp84/22/2018Major depressive disorder, recurrent episode, lyjracco08/14/2017Generalized anxiety bjbijzvi57/14/2017 Family History Medical HistoryRelationNameCommentsDepressionFatherHypertensionFatherBreast cancerMaternal GrandmotherCancerMaternal GrandmotherDiabetesMaternal Grandmother Heart diseaseMaternal GrandmotherAsthmaMotherDiabetesMotherHypertensionMother Colon cancerPaternal GrandfatherRelationNameStatusCommentsFatherMaternal GrandmotherMotherPaternal Grandfather Social History Tobacco UseTypesPacks/DayYears UsedDateSmoking Tobacco: Every DayCigarettes0.510 Started: 07/17/2007; Last attempted to quit: 07/17/2017Smokeless Tobacco: Never Alcohol UseStandard Drinks/WeekCommentsYes6 (1 standard drink = 0.6 oz pure alcohol)ChildcareAnswerDate TtrleyjaIywbtyntxGhneuqw77/12/2019EmploymentAnswer Date ZibkbptdVjdieprkjrLukyvmy80/12/2019Purpose - LifeAnswerDate RecordedPurpose and direction in fjzyQacitmt64/11/2021CommentsNoSex and Gender InformationValueDate RecordedSex Assigned at BirthNot on fileLegal SexFemale 05/26/2015 12:13 PM EDTGender IdentityNot on fileSexual OrientationNot on file Last Filed Vital Signs Vital SignReadingTime TakenCommentsBlood Jbzsspny733/7810/17/2022 3:23 AM EST Ccbuy441010/17/2022 3:23 AM CTWHegtwdhosfv58.1 ??C (98.8 ??F)10/17/2022 3:04 AM ESTRespiratory Bsui947212/18/2021 1:24 AM ESTOxygen Cyaecemciw08%10/17/2022 3:23 AM ESTInhaled Oxygen Concentration--Szfwhi44.6 kg (149 lb)10/17/2022 1:24 AM EST Kpcvqu699.5 cm (5' 2 )10/17/2022 1:24 AM ESTBody Mass Index27.25112/18/2021 1:24 AM EST Plan of Treatment Health MaintenanceDue DateLast DoneCommentsDepression Acbgylqep07/04/2002Tobacco Vpvwvxmvb42/04/2002DTaP,Tdap and Td Vaccines (1 - Tdap)2009Pap Smear 2011dult BMI Iwdpdorbx71Influenza Hqxyhpo3506/21/2025 Medical Devices Not on file Insurance Care Teams Team MemberRelationshipSpecialtyStart DateEnd Date Yeimi Alexander MD PCP - GeneralFamily Medicine06/05/21
--- OUTSIDE RECORDS SUMMARY | 2025-09-27 21:46 | XMS_ITS | Clinical Summary ---
Author Organization [facility] Address [address], [address] [place] [address] Care Team Providers Care Sales Exec Name Role Phone Juan Dill MD Primary Care Provider + Allergies Active AllergyReactionsCriticalityNoted DdgaXrklqgujZubadfvjuad95/03/2013Pollen Ysptrod0707/04/20165193WuhfadwdlttzLbfiCdo69/03/2013 Just took and had no problems Medications MedicationSigDispense QuantityRefillsLast FilledStart DateEnd DateStatus fluticasone (FLONASE) 50 MCG/ACT nasal spray Indications:Seasonal allergies1 spray by Nasal route 2 times daily. 1 Bottle ctive Norgestimate-Eth Estradiol (SPRINTEC 28 PO) Take by mouth dailyActive citalopram (CELEXA) 10 MG tablet Take 10 mg by mouth dailyActive Active Problems ProblemNoted DateDiagnosed NthtRpprbcyieoj88/03/2016Pain head04/09/2016Seasonal fsildhjuj07/18/2015 Family History Medical HistoryRelationNameCommentsHigh Blood PressureFatherCancerMaternal GrandmotherDiabetesMaternal GrandmotherHeart DiseaseMaternal Grandmother ArthritisMotherHigh Blood PressureMotherCancerPaternal GrandfatherRelationName StatusCommentsFatherAliveMaternal GrandmotherMotherAlivePaternal Grandfather Social History Tobacco UseTypesPacks/DayYears UsedDateSmoking Tobacco: KijflaZosrhzxzou69 Smokeless Tobacco: NeverAlcohol UseStandard Drinks/WeekCommentsYes0 (1 standard drink = 0.6 oz pure alcohol)social, 2-3 per week, unspecifiedCommentsNo Sex and Gender InformationValueDate RecordedSex Assigned at BirthNot on file Legal KhsPxidly15/10/2013 5:44 PM ESTGender IdentityNot on fileSexual OrientationNot on file Last Filed Vital Signs Vital SignReadingTime TakenCommentsBlood Xyupxdoq223/7411 6:27 PM EDT Qloce202508/23/2016 6:27 PM ZMKXfeilyjzxye48.9 ??C (98.4 ??F)08/23/2016 6:27 PM EDTRespiratory Twmc619810/23/2015 6:27 PM EDTOxygen Hafbhsloij795%03/11/2014 6:47 AM EDTInhaled Oxygen Concentration--Trntvh53.3 kg (144 lb)06/01/2016 11:27 AM VKNHjloee448.5 cm (5' 2 )05/02/2016 11:04 AM EDTBody Mass Index26.34005/02/2016 11:04 AM EDT Plan of Treatment Not on file Insurance Advance Directives * Full Code (Latest Code Status on File) Date ActivatedDate InactivatedComments03/10/2014 11:26 PM03/11/2014 3:56 PM Care Teams Team MemberRelationshipSpecialtyStart DateEnd Date Juan Dill MD [address] [place] [address] PCP - General02/25/19
--- OUTSIDE RECORDS SUMMARY | 2025-09-27 21:46 | XMS_ITS | Clinical Summary ---
Author Organization [facility] Address [address] [place] [address] Care Team Providers Care Therapist Rrt Name Role Phone Yeimi Alexander MD Primary Care Provider [phone] Yeimi Alexander MD Unavailable Allergies Active AllergyReactionsCriticalityNoted DateCommentsBee Ptfqdh1407/04/2016 Other Reaction(s): Other: See Comments Seasonal allergies. XagxqjkvylywnBbhqLey62/30/5259PqzfrqjktIenehgc52/28/2022Pollen Vgougtb3607/04/2016 Medications MedicationSigDispense QuantityRefillsLast FilledStart DateEnd DateStatus Multiple Vitamin (multivitamin) capsule Active Lactobacillus-Inulin (CULTURELLE ADULT ULT BALANCE PO) Active Cranberry 500 MG tablet Active cetirizine (ZyrTEC ALLERGY) 10 MG tablet 1 (one) time each day at the same timeActive cholecalciferol (Vitamin D-3) 50 MCG (1999) capsule Take 2,000 Units by mouth DailyActive fluticasone (Flonase) 50 MCG/ACT nasal spray Indications:Viral upper respiratory tract infectionAdminister 1 spray into each nostril in the morning. Shake gently. Before first use, prime pump. After use, clean tip and replace cap.. 16 g 09/24/2023ctive ibuprofen 200 MG tablet Take by mouthActive acetaminophen (Tylenol) 325 MG tablet Take by mouthActive albuterol HFA 90 mcg/act inhaler Indications:Acute coughINHALE 1 PUFF BY MOUTH EVERY 4 HOURS NEEDED FOR WHEEZING FOR SHORTNESS OF BREATH 9 g 4Active polyethylene glycol, PEG, 3350 (Glycolax) 17 GM/SCOOP powder Take by mouthActive dicyclomine (Bentyl) 20 MG tablet Indications:Abdominal pain, unspecified abdominal locationTake 0.5 tablets (10 mg) by mouth 3 (three) times a day as needed (abdominal pain) 10 tablet 4Active medroxyPROGESTERone (Depo-Provera) 150 MG/ML suspension prefilled syringe injection syringe Indications:Irregular mensesInject 1 mL (150 mg) into the shoulder, thigh, or buttocks 1 (one) time for 1 dose 1 mL 5Active citalopram (CeleXA) 20 MG tablet Indications:Anxiety and depressionTAKE 1 TABLET BY MOUTH IN THE MORNING 30 tablet 5Active sulfamethoxazole-trimethoprim (Bactrim DS) 800-160 MG per tablet Indications:Acute cystitis with hematuriaTake 1 tablet by mouth in the morning and 1 tablet before bedtime. Do all this for 7 days. 14 tablet 5Active ciprofloxacin (Cipro) 500 MG tablet Indications:Fever, unspecified fever cause,Hx of pyelonephritisTake 1 tablet (500 mg) by mouth in the morning and 1 tablet (500 mg) before bedtime. Do all this for 5 days. 10 tablet 5Active Active Problems ProblemNoted DateDiagnosed DateChronic reactive otitis externa of left ear 2025Family history of colon whflyx3604/13/2024Frequent bowel movements 04/13/2024History of colon jjbpeo6604/13/2024History of rectal fmrqmn4004/13/2024 Pain with bowel dwuofkrqg32/24/2024Intractable migraine with aura without status nweoiehukbe82/30/2023seudopapilledema of optic disc06/19/2023anic disorder 06/13/2023ipolar II disorder, most recent episode major gdsuaalcjn09/24/2023 Irritable bowel njyqmjer52/24/0642Jdkzt45/24/2023 Assessment & Plan (09/27/2025 6:59 PM EST): Orders: POCT Urinalysis dipstick STATUS COVID-19/FLU CBC and differential; Future Comprehensive metabolic panel; Future Mononucleosis screen; Future ciprofloxacin (Cipro) 500 MG tablet; Take 1 tablet (500 mg) by mouth in the morning and 1 tablet (500 mg) before bedtime. Do all this for [address] abdomen pelvis w and wo IV contrast; Future Sedimentation rate, automated; Future Grief tsjcyctk64/24/2023Irregular tqplvw7906/13/2023 Overview (08/14/2023): Controlled with depo S/P partial xohltiirv03/24/2023Urinary tract infectious apgvygj8306/13/2023 Assessment & Plan (09/21/2025 1:22 PM EST): Orders: sulfamethoxazole-trimethoprim (Bactrim DS) 800-160 MG per tablet; Take 1 tablet by mouth in the morning and 1 tablet before bedtime. Do all this for 7 days. Assessment & Plan (08/17/2025 4:12 PM EDT): Orders: nitrofurantoin, macrocrystal-monohydrate, (Macrobid) 100 MG capsule; Take 1 capsule (100 mg) by mouth in the morning and 1 capsule (100 mg) before bedtime. Do all this for 5 days. phenazopyridine (Pyridium) 100 MG tablet; Take 1 tablet (100 mg) by mouth 3 (three) times a day as needed for bladder spasms for up to 2 days Assessment & Plan (05/17/2025 10:07 PM EDT): Orders: cephalexin (Keflex) 500 MG capsule; Take 1 capsule (500 mg) by mouth 3 (three) times a day for 7 days SBO (small bowel obstruction)04/21/2021Nicotine use ppyaavty55/17/2021djustment disorder with depressed mood01/13/2021Malignant neoplasm of colon01/13/2021 Assessment & Plan (09/21/2025 1:22 PM EST): s/p colectomy last colonoscopy 10/2023 pt report scopes every 3 years? Obesity, Class I, BMI 30-34.9001/13/2021Malignant neoplasm of vviamm4201/05/2021 Overview (06/13/2023): Last Assessment & Plan: Assessment: SEE HPI Xohckudpqudq90/15/2020Slow transit dlfzrqzokixi22/06/2020Bicornuate uterus 09/15/2019Mixed nzozcgvdidsnwv48/19/2019Anxiety and yashmdxpuf00/18/2019 Overview (06/13/2023): Last Assessment & Plan: Assessment: stable on medication Enkxshlkng85/18/2019Postpartum mkwcnhbajb64/18/2019Posttraumatic stress disorder 09/07/20198307Bywltco51/18/2019Generalized anxiety ciqspipz23/14/2017Major depressive disorder, recurrent episode, elmfvmdw92/14/5349Plrgrziuhqa47/03/2016 Pain head04/09/2016Seasonal hzeziitsb35/18/2015 Resolved Problems ProblemNoted DateDiagnosed DateResolved DateSevere alcohol use disorder Encounters DateTypeDepartmentCare YwwyOoakhvailxv91/08/2025 7:00 PM ESTOffice Visit [facility] [address] [place] [address] Silvia Silva NP Hx of pyelonephritis (Primary Dx); Fever, unspecified fever cause; Acute midline low back pain without sciatica; Acute bilateral low back pain without bnuokmej74/08/5680Lsyymu23/08/2025 Telephone [facility] [address] [place] [address] Yeimi Alexander MD 09/23/2025Results Follow-Up [address] [place] [address] Yeimi Alexander MD POCT Urinalysis dipstick, Urine culture (clean catch), Urinalysis with reflex microscopic (clean catch), Additional followed-up results: 1:00 PM ESTOffice Visit [facility] [address] [facility] [place] [address] Yeimi Alexander MD Malignant neoplasm of colon, unspecified part of colon (HCC) (Primary Dx); Right lower quadrant abdominal pain; Acute cystitis with hematuria; Irregular bowel xwjpln6809/21/2025amboo flowsheet [facility] [address] [place] [address] Yeimi Alexander MD 09/21/20258117Jocwkz35/28/2025 4:00 PM EDTOffice Visit [facility] [address] [facility] [place] [address] Silvia Silva NP Acute cystitis with hematuria (Primary Dx); Rmfasmz6608/17/2025amboo flowsheet [facility] [address] [facility] [place] [address] Silvia Silva NP 08/17/20259998Jbgbyq59/29/2025 4:00 PM EDTClinical Support [facility] [address] [facility] [place] [address] Encounter for Depo-Provera qgvaymkidmevl49/29/2025Travelfrom Last 3 Months Family History Medical HistoryRelationNameCommentsNo Known ProblemsDaughterHypertensionFather MarkMental illnessFatherMarkCancerMaternal GrandmotherJoyceStrokeMaternal GrandmotherJoyceAsthmaMotherLindaDiabetesMotherLindaHypertensionMotherLinda Mental illnessMotherLindaNo Known ProblemsSonRelationNameStatusCommentsDaughter Alive1 daughterFatherMarkAliveMaternal GrandfatherDeceasedMaternal Grandmother JoyceAliveMotherLindaAlivePaternal GrandfatherDeceasedPaternal Grandmother DeceasedSonAlive1 son Social History Tobacco UseTypesPacks/DayYears UsedDateSmoking Tobacco: Every DayCigarettes Smokeless Tobacco: Never Tobacco Cessation:Ready to Q uit: Not Asked; Counseling Given: Not Answered Comments:Vapes daily Alcohol UseStandard Drinks/WeekCommentsYes1 (1 standard drink = 0.6 oz pure alcohol)caffeine intake: 2-3 cups per day; fntvrebX6734 Health LiteracyAnswer Date RecordedHow often do you [...] week08/03/2024How often do you attend mu-ism or gnosticism services?Never08/03/2024o you belong to any clubs or organizations such as mu-ism groups, unions, fraternal or athletic groups, or school groups?No08/03/2024How often do you attend meetings of the clubs or organizations you belong to?Never08/03/2024re you , , , , never , or living with a partner?Bozlrmam17/14/2024UDIT-C AnswerDate RecordedQ1: How often do you have a drink containing alcohol?2-3 times a week08/03/2024Q2: How many drinks containing alcohol do you have on a typical day when you are drinking?1 or Q3: How often do you have six or more drinks on one occasion?Qlemxxc4808/03/2024Overall Financial Resource Strain (CARDIA)AnswerDate RecordedHow hard is it for you to pay for the very basics like food, housing, medical care, and heating?Not very hard08/03/2024 PHQ-2AnswerDate RecordedPatient Health Questionnaire-2 Nqfmo13211/25/2022[facility] Occupational Health - Occupational Stress QuestionnaireAnswerDate RecordedDo you feel stress - tense, restless, nervous, or anxious, or unable to sleep at night because yourmind is troubled all the time - these days?Only a ieuryg6208/03/2024Exercise Vital SignAnswerDate RecordedOn average, how many days [...] were you homeless or living in a assisted (including now)?No08/03/2024CommentsUnknownSex and Gender InformationValueDate RecordedSex Assigned at BirthNot on fileLegal SexFemale 01/02/2023 8:01 PM EDTGender IdentityNot on fileSexual OrientationNot on file OccupationIndustryJob Start DateJob End DateunemployedNot on fileNot on fileNot on file Last Filed Vital Signs Vital SignReadingTime TakenCommentsBlood Rtcbrazl226/7209/27/2025 6:01 PM EST Vdedx185009/27/2025 6:01 PM IXVBrmmhszzjwg11.7 ??C (99.9 ??F)09/27/2025 6:01 PM ESTRespiratory Dbqx785511/28/2024 6:01 PM ESTOxygen Plvlcwvycm12%08/17/2025 3:57 PM EDTInhaled Oxygen Concentration--Eggqnx44.2 kg (174 lb 9.6 oz)09/27/2025 6:01 PM VSNXmnhmo619.5 cm (5' 2 )09/27/2025 6:01 PM ESTBody Mass Index31.9309/27/2025 6:01 PM EST Plan of Treatment Health MaintenanceDue DateLast DoneCommentsPneumococcal Vaccine: Pediatrics (0 to 5 Years) and At-Risk Patients (6 to 64 Years) (1 of 2 - PCV)2009 Influenza Vaccine (#1)2026Postponed from 06/21/2025 (Patient Refused)Pap Smear/ervical Cancer Hdjiaufhq39/09/2029HPV/Uftecd4302/26/2029 02/27/2024, 01/21/2019COVID-19 VaccineDiscontinued Procedures Procedure NamePriorityDate/TimeAssociated DiagnosisCommentsPOCT , URINE Irkadnp4809/27/2025 6:36 PM EST Acute bilateral low back pain without sciatica STATUS COVID-19/SBBSnyzror34/08/2025 6:16 PM EST Fever, unspecified fever cause POCT URINALYSIS WEOCHGOOPfjgnwd23/08/2025 6:16 PM EST Fever, unspecified fever cause Acute midline low back pain without sciatica IRAADtykera78/02/2025 1:14 PM EST URINALYSIS KJVGFIJxhvqgk75/02/2025 1:14 PM EST Right lower quadrant abdominal pain CULTURE, URINE, VJAWNWVQjawype18/02/2025 1:14 PM EST Right lower quadrant abdominal pain POCT , CVBBIBffgyaj00/02/2025 1:12 PM EST Right lower quadrant abdominal pain POCT URINALYSIS KKLTAPEPMeyriap52/02/2025 1:11 PM EST Right lower quadrant abdominal pain POCT URINALYSIS EJDHLDJHPcbgbpt51/28/2025 4:11 PM EDT Dysuria CULTURE, URINE, VMBAHNSVnawovd44/28/2025 4:10 PM EDT Dysuria THIN PREP TIS PAP AND HR HPV JBHSxrdlbc73/09/2024 4:09 PM EDT from Last 3 Months or Most Recently Relevant to Health Maintenance Results * POCT , urine (09/27/2025 6:36 PM EST) Only the most recent of2 resultswithin the time period is included. ComponentValueRef RangeTest MethodAnalysis TimePerformed AtPathologist Signature Preg Test, UrNegativeNegativeSpecimen (Source)Anatomical Location / Laterality Collection Method / VolumeCollection TimeReceived AwboZgile73/08/2025 6:36 PM EST Narrative Authorizing ProviderResult TypeResult StatusSt. [facility] NPPOINT OF CARE TEST ENTER/EDIT ORDERABLESFinal Result * STATUS COVID-19/FLU (09/27/2025 6:16 PM EST)ComponentValueRef RangeTest Method Analysis TimePerformed AtPathologist SignatureFLU ANegativeFLU BNegativeSARS COV 2 RNANegativeSpecimen (Source)Anatomical Location / LateralityCollection Method / VolumeCollection TimeReceived FzyiBvmyzbermlybfa14/08/2025 6:16 PM EST Narrative Authorizing ProviderResult TypeResult StatusAshDayton VA Medical Center NPPOINT OF CARE TEST ENTER/EDIT ORDERABLESFinal Result * POCT Urinalysis dipstick (09/27/2025 6:16 PM EST) Only the most recent of3 resultswithin the time period is included. ComponentValueRef RangeTest MethodAnalysis TimePerformed AtPathologist Signature Color, UAYellowClarity, UAClearGlucose, UANegativeNegative - 2000(110) ++++ mg/dLBilirubin, UANegativeNegative - 4(70) +++ mg/dLKetones, UANegativeNegative - 160(16) ++++ mg/dLSpec Grav, UA1.0101 - 1.03Blood, UANegativeNegative - 50 Sahil/mcLpH, UA6.05 - 9Protein, UANegativeNegative - 2000(20) ++++ mg/dL Urobilinogen, UA0.20.2 - 12 mg/dLLeukocytes, UATraceNegative - 500+++ Brayan/mcL Nitrite, UANegativeNegative - PositiveSpecimen (Source)Anatomical Location / LateralityCollection Method / VolumeCollection TimeReceived QrprFenvw58/08/2025 6:16 PM EST Narrative Authorizing ProviderResult TypeResult StatusSilvia [place]df[place] NPPOINT OF CARE TEST ENTER/EDIT ORDERABLESFinal Result * NOTE (09/21/2025 1:14 PM EST)ComponentValueRef RangeTest MethodAnalysis Time Performed AtPathologist SignatureNOTEQUESTComment: This urine was analyzed for the presence of WBC, RBC, bacteria, casts, and other formed elements. Only those elements seen were reported. Specimen (Source)Anatomical Location / LateralityCollection Method / Volume Collection TimeReceived Time09/21/2025 1:14 PM EST09/21/2025 1:15 PM EST Narrative Resulting Agency Comment Performing Organization Information ?Site ID: QPT ?Name: [employer] [facility] ?Address: [address] [place] [address], [address] [place] [id number] ?Director: Cody Richmond MD Authorizing ProviderResult TypeResult Corby Alexander MDQUESTFinal Result Performing OrganizationAddressCity/State/ZIP CodePhone Number [facility] * (ABNORMAL) Urinalysis with reflex microscopic (clean catch) (09/21/2025 1:14 PM EST)ComponentValueRef RangeTest MethodAnalysis TimePerformed AtPathologist SignatureCOLORYELLOWYELLOWQUESTAPPEARANCECLOUDY(A)CLEARQUESTSPECIFIC GRAVITY 1.0081.001 - 1.349TVIHOTA7.55.0 - 8.0QUESTGLUCOSENEGATIVENEGATIVEQUEST BILIRUBINNEGATIVENEGATIVEQUESTKETONESNEGATIVENEGATIVEQUESTOCCULT BLOOD2+(A) NEGATIVEQUESTPROTEINTRACE(A)NEGATIVEQUESTNITRITENEGATIVENEGATIVEQUESTLEUKOCYTE ESTERASE3+(A)NEGATIVEQUESTWBC> OR = 60(A)< OR = 5 /HPFQUESTRBCNONE SEEN< OR = 2 /HPFQUESTSQUAMOUS EPITHELIAL CELLS0-5< OR = 5 /HPFQUESTBACTERIAFEW(A)NONE SEEN /HPFQUESTHYALINE CAST0-5(A)NONE SEEN /LPFQUESTSpecimen (Source)Anatomical Location / LateralityCollection Method / VolumeCollection TimeReceived Time UrineUrine specimen obtained by clean catch procedure / Ozuxbik1809/21/2025 1:14 PM EST09/21/2025 1:15 PM EST Narrative Resulting Agency Comment Performing Organization Information ?Site ID: QPT ?Name: [employer] [facility] ?Address: [address] [place] [address], [address] [place], [place] [id number] ?Director: Cody Richmond MD Authorizing ProviderResult TypeResult StatusYeimi HARDWICK URINE ORDERABLES Final ResultPerforming OrganizationAddressCity/State/[facility] CodePhone Number [facility] * Urine culture (clean catch) (09/21/2025 1:14 PM EST) Only the most recent of2 resultswithin the time period is included. ComponentValueRef RangeTest MethodAnalysis TimePerformed AtPathologist Signature MICRO [id number] QUALITYAdequateQUESTSOURCE: (QUEST)URINEQUEST STATUSFINALQUESTRESULTSEE NOTEQUESTComment: Less than 10,000 CFU/mL of single Gram negative organism isolated. No further testing will be performed. If clinically indicated, recollection using a method to minimize contamination, with prompt transfer to Urine Culture Transport Tube, is recommended. Specimen (Source)Anatomical Location / LateralityCollection Method / Volume Collection TimeReceived TimeUrineUrine specimen obtained by clean catch procedure / Vukfccs7809/21/2025 1:14 PM EST09/21/2025 1:15 PM EST Narrative Resulting Agency Comment Performing Organization Information ?Site ID: QPT ?Name: [employer] [facility] ?Address: [address] [place] [address], [address] [place] [address] ?Director: Cody Richmond MD Authorizing ProviderResult TypeResult Corby HARDWICK MICROBIOLOGY - GENERAL ORDERABLESFinal ResultPerforming OrganizationAddressty/State/ZIP Code Phone Number [facility] * (ABNORMAL) THIN PREP TIS PAP AND HR HPV DNA (02/27/2024 4:09 PM EDT)Component ValueRef RangeTest MethodAnalysis TimePerformed AtPathologist Signature CLINICAL INFORMATIONQUESTComment:None givenLMPQUESTComment:NONE GIVENPREV. PAP QUESTComment:NONE GIVENPREV. BXQUESTComment:NONE GIVENSOURCEQUESTComment:None givenSTATEMENT OF ADEQUACYQUESTComment: Satisfactory for evaluation. Endocervical/transformation zone component absent. INTERPRETATION/RESULTQUESTComment: Cytology Results: Negative for intraepithelial lesion or malignancy. COMMENTQUESTComment: This Pap test has been evaluated with computer assisted technology. CYTOTECHNOLOGISTQUESTComment: CMB, CT(ASCP) CT Screening Location: [place] [address] REVIEW CYTOTECHNOLOGISTQUESTComment: [facility], CT(ASCP) CT screening location: [place] [address]. (ALWAYS MESSAGE)QUESTComment: EXPLANATORY NOTE: The Pap is a screening test for cervical cancer. It is not a diagnostic test and is subject to false negative and false positive results. It is most reliable when a satisfactory sample, regularly obtained, is submitted with relevant clinical findings and history, and when the Pap result is evaluated along with historic and current clinical information. HPV DNA, HIGH RISK, CERVICALDetected(A)NOT DETECTEDQUESTComment: Detected One or more High Risk HPV types (16,18,31,33, 35,39,45,51,52,56,58,59,66,68) was detected. Methodology: Real Time PCR Specimen (Source)Anatomical Location / LateralityCollection Method / Volume Collection TimeReceived Time02/27/2024 4:09 PM EDT02/28/2024 2:52 AM EDT Narrative Resulting Agency Comment Performing Organization Information ?Site ID: AMD ?Name: [employer]/[place] ?Address: [address] [place] [address] [address] [place], [place] ?Director: Dudley Ren M.D.,PhD ?Site ID: [id number] ?Name: [employer] [facility] ?Address: [address] [place] [phone] ?Director: Cody Richmond MD Authorizing ProviderResult TypeResult StatusYemii Alexander MDLAB CYTOLOGY ORDERABLESFinal ResultPerforming OrganizationAddressCity/State/ZIP CodePhone Number [facility] from Last 3 Months or Most Recently Relevant to Health Maintenance Insurance Care Teams Team MemberRelationshipSpecialtyStart DateEnd Date Yeimi Alexander MD [address] [place] [address] [facility] - [facility] Yeimi Alexander MD [address] [facility] [address] [place], [place] [id number] PCP - Alan Lara06/21/25
--- OUTSIDE RECORDS SUMMARY | 2025-09-27 21:46 | XMS_ITS | Encounter Summary ---
Author Organization [facility] Address [address] [place] [address] Care Team Providers Care Senior It Assistant Name Role Phone Yeimi Alexander MD Primary Care Provider [phone] Yeimi Alexander MD Unavailable Encounter Details DateTypeDepartmentCare Team (Latest Contact Info)Qiwwfkznpiy38/04/2025Results Follow-Up [facility] [address] [place] [phone] Yeimi Alexander MD [address] [place], [place] [id number] POCT Urinalysis dipstick, Urine culture (clean catch), Urinalysis with reflex microscopic (clean catch), Additional followed-up results: 2 Social History Tobacco UseTypesPacks/DayYears UsedDateSmoking Tobacco: Every DayCigarettes Smokeless Tobacco: Never Comments:Vapes daily Alcohol UseStandard Drinks/WeekCommentsYes1 (1 standard drink = 0.6 oz pure alcohol)caffeine intake: 2-3 cups per day; efpskowV1917 Health LiteracyAnswer Date RecordedHow often do you [...] times a week08/03/2024How often do you attend christian or christian services?Never08/03/2024o you belong to any clubs or organizations such as christian groups, unions, fraternal or athletic groups, or school groups?No08/03/2024How often do you attend meetings of the clubs or organizations you belong to?Never08/03/2024re you , , , , never , or living with a partner?Uxrenunw49/14/2024UDIT-C AnswerDate RecordedQ1: How often do you have a drink containing alcohol?2-3 times a week08/03/2024Q2: How many drinks containing alcohol do you have on a typical day when you are drinking?1 or Q3: How often do you have six or more drinks on one occasion?Jptskhc4208/03/2024Overall Financial Resource Strain (CARDIA)AnswerDate RecordedHow hard is it for you to pay for the very basics like food, housing, medical care, and heating?Not very hard08/03/2024 PHQ-2AnswerDate RecordedPatient Health Questionnaire-2 Mozgr92811/25/2022[facility] [place] [facility] - Occupational Stress QuestionnaireAnswerDate RecordedDo you feel stress - tense, restless, nervous, or anxious, or unable to sleep at night because yourmind is troubled all the time - these days?Only a wswlju5708/03/2024Exercise Vital SignAnswerDate RecordedOn average, how many days [...] were you homeless or living in a retirement (including now)?No08/03/2024CommentsUnknownSex and Gender InformationValueDate RecordedSex Assigned [...] MemberRelationshipSpecialtyStart DateEnd Date Yeimi Alexander MD [address] [place] [address] PCP - GeneralFamily Medicine04/02/23 Yeimi Alexander MD [address] [place] [address] PCP - Alan Lara06/21/25documented as of this encounter
--- OUTSIDE RECORDS SUMMARY | 2025-09-27 21:46 | XMS_ITS | Encounter Summary ---
Author Organization [facility] Address [address] [place] [address] Care Team Providers Care Paint And Table Edger Name Role Phone Yeimi Alexander MD Primary Care Provider [phone] Yeimi Alexander MD Unavailable Encounter Details DateTypeDepartmentCare Team (Latest Contact Info)Ivbkgxakyqo37/08/2025Telephone [facility] Family Medicine [address] [place] [address] Yeimi Alexander MD [address] [place] [address] Social History Tobacco UseTypesPacks/DayYears UsedDateSmoking Tobacco: Every DayCigarettes Smokeless Tobacco: Never Comments:Vapes daily Alcohol UseStandard Drinks/WeekCommentsYes1 (1 standard drink = 0.6 oz pure alcohol)caffeine intake: 2-3 cups per day; [id number] Health LiteracyAnswer Date RecordedHow often do you [...] friends or relatives?More than three times a week10/14/2024How often do you attend jehovah's witness or alevism services?Never08/03/2024o you belong to any clubs or organizations such as jehovah's witness groups, unions, fraternal or athletic groups, or school groups?No08/03/2024How often do you attend meetings of the clubs or organizations you belong to?Never08/03/2024re you , , , , never , or living with a partner?Yiuithor20/14/2024UDIT-C AnswerDate RecordedQ1: How often do you have a drink containing alcohol?2-3 times a week08/03/2024Q2: How many drinks containing alcohol do you have on a typical day when you are drinking?1 or Q3: How often do you have six or more drinks on one occasion?Lhqxsmt0108/03/2024Overall Financial Resource Strain (CARDIA)AnswerDate RecordedHow hard is it for you to pay for the very basics like food, housing, medical care, and heating?Not very hard08/03/2024 PHQ-2AnswerDate RecordedPatient Health Questionnaire-2 Vjfif14511/25/2022[facility] [place] of Occupational Health - Occupational Stress QuestionnaireAnswerDate RecordedDo you feel stress - tense, restless, nervous, or anxious, or unable to sleep at night because yourmind is troubled all the time - these days?Only a xijejk7608/03/2024Exercise Vital SignAnswerDate RecordedOn average, how many days [...] were you homeless or living in a jail (including now)?No08/03/2024CommentsUnknownSex and Gender InformationValueDate RecordedSex Assigned at BirthNot on fileLegal SexFemale 01/02/2023 8:01 PM EDTGender IdentityNot on fileSexual OrientationNot on file OccupationIndustryJob Start DateJob End DateunemployedNot on fileNot on fileNot on filedocumented as of this encounter Miscellaneous Notes * Telephone Encounter - Jazz Pittman MA - 09/27/2025 5:41 PM EST Spoke with Silvia and she recommended that patient be seen again to rule out kidney stones with new/worsening symptoms. * Telephone Encounter - Brad Quick - 09/27/2025 3:56 PM EST Pt called said she had come in for a uti at last appt. Thinks it may be getting worse and turning into a kidney infection having fevers, lower back pain, and neck pain and would like to be advised onwhat the next step should be documented in this encounter Plan of Treatment Not on file documented as of this encounter Visit Diagnoses Not on filedocumented in this encounter Care Teams Team MemberRelationshipSpecialtyStart DateEnd Yeimi Alexander MD [address] [place] [address] PCP - GeneralFamily Medicine04/02/23 Yeimi Alexander MD [address] [place] [address] PCP - [place] [employer]06/21/25documented as of this encounter
--- OUTSIDE RECORDS SUMMARY | 2025-09-27 21:46 | XMS_ITS | Encounter Summary ---
Author Organization [facility] Address [address] [place] [address] Care Team Providers Care Content Administrator Name Role Phone Yeimi Alexander MD Primary Care Provider [phone] Yeimi Alexander MD Unavailable Encounter Details DateTypeDepartmentCare Team (Latest Contact Info)Lufhoaehiuc25/02/2025Bamboo flowsheet [facility] Family Medicine [address] [place] [address] Yeimi Alexander MD [address] [place] [address] Social History Tobacco UseTypesPacks/DayYears UsedDateSmoking Tobacco: Every DayCigarettes Smokeless Tobacco: Never Comments:Vapes daily Alcohol UseStandard Drinks/WeekCommentsYes1 (1 standard drink = 0.6 oz pure alcohol)caffeine intake: 2-3 cups per day; [id number] Health LiteracyAnswer Date RecordedHow often do you [...] times a week08/03/2024How often do you attend baptist or amish services?Never08/03/2024o you belong to any clubs or organizations such as baptist groups, unions, fraternal or athletic groups, or school groups?No08/03/2024How often do you attend meetings of the clubs or organizations you belong to?Never08/03/2024re you , , , , never , or living with a partner?Awtezqcq09/14/2024UDIT-C AnswerDate RecordedQ1: How often do you have a drink containing alcohol?2-3 times a week08/03/2024Q2: How many drinks containing alcohol do you have on a typical day when you are drinking?1 or Q3: How often do you have six or more drinks on one occasion?Egzekpz6208/03/2024Overall Financial Resource Strain (CARDIA)AnswerDate RecordedHow hard is it for you to pay for the very basics like food, housing, medical care, and heating?Not very hard08/03/2024 PHQ-2AnswerDate RecordedPatient Health Questionnaire-2 Ijiuh71311/25/2022[facility] [place] of Occupational Health - Occupational Stress QuestionnaireAnswerDate RecordedDo you feel stress - tense, restless, nervous, or anxious, or unable to sleep at night because yourmind is troubled all the time - these days?Only a wumqtw7608/03/2024Exercise Vital SignAnswerDate RecordedOn average, how many days [...] were you homeless or living in a intermediate (including now)?No08/03/2024CommentsUnknownSex and Gender InformationValueDate RecordedSex Assigned [...] MemberRelationshipSpecialtyStart DateEnd Date Yeimi Alexander MD [address] [place] [address] PCP - GeneralFamily Medicine04/02/23 Yeimi Alexander MD [address] [place] [address] PCP - Alan Lara06/21/25documented as of this encounter
--- OUTSIDE RECORDS SUMMARY | 2025-09-27 21:46 | XMS_ITS | Encounter Summary ---
Author Organization [facility] Address [address] [place] [address] Care Team Providers Care Radio Television Technical Director Name Role Phone Yeimi Alexander MD Primary Care Provider [phone] Yeimi Alexander MD Unavailable Encounter Details DateTypeDepartmentCare Team (Latest Contact Info)Lwhyuszkuky16/02/2025Travel Social History Tobacco UseTypesPacks/DayYears UsedDateSmoking Tobacco: Every DayCigarettes Smokeless Tobacco: Never Comments:Vapes daily Alcohol UseStandard Drinks/WeekCommentsYes1 (1 standard drink = 0.6 oz pure alcohol)caffeine intake: 2-3 cups per day; [id number] Health LiteracyAnswer Date RecordedHow often do you [...] times a week08/03/2024How often do you attend episcopal or roman catholic services?Never08/03/2024o you belong to any clubs or organizations such as episcopal groups, unions, fraternal or athletic groups, or school groups?No08/03/2024How often do you attend meetings of the clubs or organizations you belong to?Never08/03/2024re you , , , , never , or living with a partner?Joofhtma46/14/2024UDIT-C AnswerDate RecordedQ1: How often do you have a drink containing alcohol?2-3 times a week08/03/2024Q2: How many drinks containing alcohol do you have on a typical day when you are drinking?1 or Q3: How often do you have six or more drinks on one occasion?Sqxnzum7108/03/2024Overall Financial Resource Strain (CARDIA)AnswerDate RecordedHow hard is it for you to pay for the very basics like food, housing, medical care, and heating?Not very hard08/03/2024 PHQ-2AnswerDate RecordedPatient Health Questionnaire-2 Ihjeq69311/25/2022[facility] [place] of Occupational Health - Occupational Stress QuestionnaireAnswerDate RecordedDo you feel stress - tense, restless, nervous, or anxious, or unable to sleep at night because yourmind is troubled all the time - these days?Only a mvmqen6708/03/2024Exercise Vital SignAnswerDate RecordedOn average, how many days [...] MemberRelationshipSpecialtyStart DateEnd Date Yeimi Alexander MD [address] [place] [address] [facility] Yeimi Alexander MD [address] [facility] [place] [address] PCP - Alan Lara06/21/25documented as of this encounter
[2025-09-27] MEDS: ACETAMINOPHEN 500 MG TABLET 1000 MG PO (21:54)
[2025-09-27 21:57] LABS: Atypical Lymphocytes % Manual 6.0 %; Atypical Lymphocytes Abs Man 0.28; Basophils Abs Manual 0.00 10^3/uL (0.00-0.10); Basophils Percent Manual 0.0 % (0.2-2.0); Eosinophils Absolute Manual 0.00 10^3/uL (0.00-0.70); Eosinophils Percent Manual 0.0 % (0.9-7.0); Lymphocytes Absolute Manual 0.24 10^3/uL (1.20-3.80); Lymphocytes Percent Manual 5.0 % (20.5-60.0); Monocytes Absolute Manual 0.14 10^3/uL (0.30-0.80); Monocytes Percent Manual 3.0 % (1.7-12.0); Segmented Neut Absolute Manual 4.12 10^3/uL (1.4-6.5); Segmented Neutrophils % Manual 86.0 (43.0-75.0)
[2025-09-27 22:45] LABS: Clarity Body Fluid CLEAR; Color Body Fluid COLORLESS; Red Blood Cell BF Side 1 251; Red Blood Cell BF Side 2 287; White Blood Cell BF Side 1 1; White Blood Cell BF Side 2 0
--- NOTE | 2025-09-27 22:56 | XR_ITS ---
[facility] [place] [id number] Patient Name: JOCE KU MRN: [id number] date: 1990 Sex: F Assigned Patient Location: ER Current Patient Location: Accession/Order Number: [id number] Exam Date: 09/27/2025 23:10 Report Date: 09/28/2025 00:10 At the request of: SOURAV JOHNSON MD Procedure: XR chest 1V PA CHEST: CLINICAL HISTORY: fever COMPARISON: None Unremarkable cardiomediastinal silhouette. Lungs clear. No effusion or pneumothorax. XR/XR chest 1V IMPRESSION: NEGATIVE CHEST. Impression dictated by: García James M.D. 09/28/2025 12:10 AM Dictation Location: [place] [address] Electronically authenticated by: [id number] Date: 09/28/2025 00:10
[2025-09-27 23:19] VITALS: BP 112/65; PULSE 103; TEMP 37.6; O2SAT 95
[2025-09-27 23:42] LABS: Glucose Urine UA NEGATIVE (NEGATIVE)
[2025-09-27 23:55] LABS: Cast Seen? NONE SEEN #/LPF (NONE SEEN); Crystals Seen? None Seen #/HPF (None Seen); Urine Culture Indicated NO
[2025-09-28 10:08] LABS: CSF Color COLORLESS (COLORLESS); Red Blood Cell CSF Side 1 251; White Blood Cell CSF 0 cubic mm (0-5); White Blood Cell CSF Side 1 0; White Blood Cell CSF Side 2 1
[2025-09-28 10:09] LABS: Red Blood Cell CSF 298 cubic mm (0-0); Red Blood Cell CSF Side 2 287
== END 2025-09-28 00:08 | disposition home or self-care (01) ==
PROVIDERS: Emergency Provider Internal Medicine; PCP Family Medicine
DX: B34.9 Viral infection, unspecified (principal)
CPT/HCPCS: 36415; 62270; 71045; 80053; 81001; 82945; 83605; 83916; 84157; 85007; 85027; 87116; 87205; 87206; 87529; 87804; 87811; 89050; 89051; 96374; 96375; 99285; J2060; J2405